=== PATIENT | male | born 1995 | race Caucasian/White ===

== ENCOUNTER 2022-04-01 11:57 | Emergency (ER) | payer MEDICAID ==
[~2022-04-01] VITALS: Ht 170.2 cm; Wt 83.9 kg
[2022-04-01 12:17] VITALS: BP 134/74
[2022-04-01 14:04] VITALS: BP 134/74
== END 2022-04-01 14:04 | disposition home or self-care (01) ==
LOC: MED 11:57
DX: S62.325A Displaced fracture of shaft of fourth metacarpal bone, left hand, initial encounter for closed fracture (principal); W01.0XXA Fall on same level from slipping, tripping and stumbling without subsequent striking against object, initial encounter; Y93.64 Activity, baseball; Y92.89 Other specified places as the place of occurrence of the external cause; Y99.8 Other external cause status
CPT/HCPCS: 26605; 73120; 73130; 99284